=== PATIENT | male | born 1990 | race Caucasian/White ===

== ENCOUNTER 2016-10-02 10:09 | Emergency (ER) | payer SELFPAY ==
[~2016-10-02] VITALS: Ht 167.6 cm; Wt 75.0 kg
[2016-10-02 10:22] VITALS: Ht 167.6 cm; Wt 75.0 kg
[2016-10-02] MEDS ORDERED: ONDANSETRON 4 MG INJ IV STA (10:25)
[2016-10-02] MEDS ORDERED: SOD CHLORIDE 0.9% 1,000 ML IV STA ×2 (10:25→11:51)
--- NOTE | 2016-10-02 10:36 | ERD ---
ER Documentation Chief Complaint Date/Time DATE: 10/02/16 TIME: 10:29 Chief Complaint TACHYCARDIA, DIAPHORESIS, PALE WHILE AT WORK , STATES FLU SYMPTOMS X8 DAYS HPI This is a very pleasant 25-year-old male with no past medical history that presents to the emergency department complaining of flulike symptoms for the past 7 days. The patient indicates he has had generalized malaise, tactile fever, nonproductive cough 7 days prior to arrival but has not improved. He took Motrin and Tylenol at 5 AM, 5 hours prior to arrival. The patient indicates he was working out doing cardiovascular activity when he felt very lightheaded and dizzy and developed palpitations. He did not experience any syncope or near syncope episode denied any vertigo. He has no tinnitus. His coworker stated that he became diaphoretic. The patient denied a headache. He has not experienced any neck pain. He denies any recent travel. He denies any shortness of breath at rest or exertion. He denies any hemoptysis hematemesis or melanotic stools. ROS All systems reviewed and are negative except as per history of present illness. Medications Home Meds No Active Prescriptions or Reported Meds Allergies Allergies: Coded Allergies: No Known Drug Allergies (Verified Allergy, Unknown, 10/02/16) Physical Exam Vitals Vital Signs Date Time Temp Pulse Resp B/P Pulse Ox O2 Delivery O2 Flow Rate FiO2 10/02/16 10:22 99.0 118 18 114/76 95 Physical Exam Constitutional:Well-developed. Well-nourished. HEENT:Normocephalic. Atraumatic.Pupils were equal round reactive to light. Dry mucous membranes.No tonsillar exudates. Neck: No nuchal rigidity. No lymphadenopathy. No posterior cervical spine tenderness or step-offs. Respiratory: Not using accessory muscles of respiration.Lungs were clear to auscultation bilaterally. No rhonchi. No rales. No wheezing. Cardiovascular: Tachycardic with regular rhythm.No murmurs. No rubs were appreciated.S1, S2 normal. Distal pulses are palpable 2+ bilaterally. GI: Abdomen was soft. Nontender. Non Distended. No pulsatile abdominal masses or bruits. No rebound. No guarding. Bowel sounds were present and normal. Muscle skeletal: Full range of motion of both the upper and lower extremities bilaterally.Normal muscle tone.No assymetrical calf tenderness or swelling. Skin: No petechia, no purpura. No lesions on the palms or the soles of the feet. No maculopapular rash. NEURO: Patient was alert, awake, orientated x3.No facial droop. Gait observed and normal with no ataxia.Speech had regular rate and rhythm. No focal neurological deficits. Result Diagram: 10/02/16 1026 10/02/16 1255 Results 24 hrs Laboratory Tests Test 10/02/16 10:26 10/02/16 12:55 White Blood Count 16.810^3/ul Red Blood Count 4.8110^6/ul Hemoglobin 13.4g/dl Hematocrit 41.1% Mean Corpuscular Volume 85.4fl Mean Corpuscular Hemoglobin 27.9pg Mean Corpuscular Hemoglobin Concent 32.6g/dl Red Cell Distribution Width 12.9% Platelet Count 95079^3/UL Mean Platelet Volume 10.6fl Neutrophils % 82.7% Lymphocytes % 6.8% Monocytes % 3.5% Eosinophils % 0.1% Basophils % 0.4% Nucleated Red Blood Cells % 0.0/100WBC Neutrophils # 13.910^3/ul Lymphocytes # 1.110^3/ul Monocytes # 0.610^3/ul Eosinophils # 0.010^3/ul Basophils # 0.110^3/ul Nucleated Red Blood Cells # 0.010^3/ul Sodium Level 143mmol/L 139mmol/L Potassium Level 4.0mmol/L 4.6mmol/L Chloride Level 104mmol/L 106mmol/L Carbon Dioxide Level 21mmol/L 22mmol/L Anion Gap 22 16 Blood Urea Nitrogen 23mg/dl 22mg/dl Creatinine 2.05mg/dl 1.59mg/dl Glucose Level 105mg/dl 92mg/dl Calcium Level 10.6mg/dl 9.5mg/dl Total Bilirubin 0.1mg/dl Direct Bilirubin 0.00mg/dl Indirect Bilirubin 0.1mg/dl Aspartate Amino Transf (AST/SGOT) 42IU/L Alanine Aminotransferase (ALT/SGPT) 44IU/L Alkaline Phosphatase 115IU/L Total Protein 7.7g/dl Albumin 4.4g/dl Globulin 3.30g/dl Albumin/Globulin Ratio 1.33 Amylase Level 98U/L Lipase 100U/L Creatine Kinase 391IU/L Creatine Kinase Index 0.7 Creatinine Kinase MB (Mass) 2.70ng/ml Troponin I 0.054ng/ml Current Medications Medications (Trade) Dose Ordered Sig/Frank Route PRN Reason Start Time Stop Time Status Last Admin Dose Admin Sodium Chloride (NS) 1,000 ml @ 1,000 mls/hr Q1H STAT IV 10/02/16 10:25 10/02/16 11:24 DC 10/02/16 10:42 Ondansetron HCl 4 mg 4 mg ONCE STAT IV 10/02/16 10:25 10/02/16 10:27 DC 10/02/16 10:42 Sodium Chloride (NS) 1,000 ml @ 1,000 mls/hr Q1H STAT IV 10/02/16 11:51 10/02/16 12:50 DC 10/02/16 12:48 Famotidine (Pepcid Iv) 20 mg ONCE STAT IV 10/02/16 11:51 10/02/16 11:56 DC 10/02/16 12:48 Procedures/MDM This patient was seen and evaluated by myself. The patient presented to the emergency department complaining of dizziness and palpitations. My differential diagnosis included but was not limited to hypovolemia, myocardial infarction, pulmonary embolism, hypoglycemia, hypoxia, anemia, vasovagal episode, hypothyroidism, anxiety, peripheral or central vertigo. The patient was placed on a cardiac technologist, continuous pulse oximetry and IV access established by nursing staff. The patient appeared to have a upper respiratory infection and likely a viral etiology. Chest radiograph showed no evidence of pneumonia. The patient had clinical dehydration received IV fluids and Zofran. 12 Lead EKG tracing ordered and reviewed by myself showed: Sinus tachycardia of 111 bpm and no arrhythmia. [place] interval normal. QRS duration normal. No ST segment elevation No ST segment depression. No changes consistent with acute ischemia. The patient had leukocytosis with white blood cell count of 16.8. The patient was afebrile while in the emergency department. I did feel the patient's leukocytosis likely was a result of a viral etiology versus a bacterial etiology and there is no evidence of sepsis. The patient did have an elevated BUN and creatinine of 23 and 2.05. The patient has no history of renal failure and therefore did obtain an ultrasound of the kidneys which indicated no acute emergent pathology. I repeated the patient's blood work after he received IV fluid resuscitation and his BUN and creatinine had slightly improved from 22 to1.59 respectively Observation Note: Time: 4 hours Family Hx: No Hypertension Evaluation: Multiple exams showed improving symptoms and no evidence of severe rhabdomyolysis. The patient received a total of 3 L boluses of normal saline as his creatinine kinase was elevated at 391. The patient is currently in training for the fire department and states he has been undergoing a significant amount of cardiovascular activity despite having the upper respiratory infection. I explained to the patient the importance of avoiding extreme cardiovascular activity over the next several days as he does have mild rhabdomyolysis. The patient's [employer] was at the bedside and did indicate that they will be able to remove the patient from duty temporarily and follow-up with her Worker's Comp. physician on Sunday, October 05, 1947 hours from now. The patient had been given antiemetics in the emergency department and had no emesis while in the ER. He was able to tolerate oral intake. He will be sent home with a prescription of Zofran. The patient was discharged home in fair condition. They were instructed to return to the emergency department at any time if there was any worsening of their condition. The patient stated they would follow up with their PCP in the next 24-48 hours to initiate a suitable medication regimen under the care of their PCP as well as to allow their PCP to monitor any drug reactions. The patient was discharged home with prescriptions after they gave informed consent to the new medication. They were also fully informed by myself on the adverse effects and adverse drug interactions in order to provide adequate safeguards to prevent possible adverse reactions to medications. Departure Diagnosis: Primary Impression: Upper respiratory infection URI type: unspecified viral URI Qualified Code: J06.9 - Viral upper respiratory tract infection Additional Impressions: Palpitations Dizziness Rhabdomyolysis Rhabdomyolysis type: non-traumatic Qualified Code: M62.82 - Non-traumatic rhabdomyolysis Condition: Fair HENNAARNOLD WEBSTERA Oct 02, 2016 10:36
[2016-10-02 10:48] LABS: ADD SCAN DIFF NO
--- NOTE | 2016-10-02 10:50 | RADRPT ---
PROCEDURE: XR Chest. CLINICAL INDICATION: chest pain, abdominal pain TECHNIQUE: Single frontal view of the chest was obtained COMPARISON: None FINDINGS: The heart and mediastinum are within normal limits. The lungs are clear. There is no pleural effusion or pneumothorax. RPTAT: AA IMPRESSION: No acute disease. .Napoleon Gustafson MD, MD Date Time Electronically viewed and signed by .Napoleon Gustafson MD, on 10/02/2016 10:50 .S/
[2016-10-02 10:51] LABS: ABNORMAL IP MESSAGE 1; BASOPHIL # 0.1 10^3/ul (0.0-0.1); BASOPHILS % 0.4 % (0.0-2.0); EOSINOPHILS % 0.1 % (0.0-7.0); HEMATOCRIT 41.1 % (42.0-52.0); HEMOGLOBIN 13.4 g/dl (14.0-18.0); LYMPHOCYTES # 1.1 10^3/ul (0.8-2.9); LYMPHOCYTES % 6.8 % (15.0-51.0); MEAN CORPUSCULAR HEMOGLOBIN 27.9 pg (29.0-33.0); MEAN CORPUSCULAR HGB CONC 32.6 g/dl (32.0-37.0); MEAN CORPUSCULAR VOLUME 85.4 fl (82.0-101.0); MEAN PLATELET VOLUME 10.6 fl (7.4-10.4); MONOCYTE # 0.6 10^3/ul (0.3-0.9); MONOCYTES % 3.5 % (0.0-11.0); NEUTROPHIL # 13.9 10^3/ul (1.6-7.5); NEUTROPHILS % 82.7 % (39.0-77.0); PLATELET COUNT 274 10^3/UL (140-415); RED BLOOD COUNT 4.81 10^6/ul (4.70-6.10); RED CELL DISTRIBUTION WIDTH 12.9 % (11.5-14.5); WHITE BLOOD COUNT 16.8 10^3/ul (4.8-10.8)
[2016-10-02 11:01] LABS: ALBUMIN 4.4 g/dl (3.3-4.9)
[2016-10-02 11:04] LABS: CREATININE 2.05 mg/dl (0.61-1.24)
[2016-10-02 11:05] LABS: ALBUMIN/GLOBULIN RATIO 1.33; BILIRUBIN,INDIRECT 0.1 mg/dl (0-1.1); BILIRUBIN,TOTAL 0.1 mg/dl (0.2-1.3); CALCIUM 10.6 mg/dl (8.4-10.2); TOTAL PROTEIN 7.7 g/dl (6.1-8.1)
[2016-10-02] MEDS ORDERED: FAMOTIDINE 20 MG INJ IV STA (11:51)
--- NOTE | 2016-10-02 12:54 | RADRPT ---
PROCEDURE: Renal US. CLINICAL INDICATION: elevated BUN/Cr with no hx of renal failure TECHNIQUE: Multiple sonographic images of the kidneys were obtained. The images were reviewed on a PACS workstation. COMPARISON: No prior studies are available for comparison. FINDINGS: The kidneys are well visualized. The right kidney measures 9.9 cm. The left kidney measures 10.9 cm. There are no focal areas of abnormal echogenicity. There is no evidence for obstructive uropathy. T he urinary bladder is grossly unremarkable. IMPRESSION: Unremarkable renal ultrasound. Physician Lauro Date Time Electronically viewed and signed by Physician Lauro on 10/02/2016 12:54 ML/
[2016-10-02 13:22] LABS: POTASSIUM 4.6 mmol/L (3.5-5.1)
[2016-10-02 13:25] LABS: CREATININE 1.59 mg/dl (0.61-1.24)
[2016-10-02 13:26] LABS: CALCIUM 9.5 mg/dl (8.4-10.2)
[2016-10-02 13:38] LABS: TROPONIN-I 0.054 ng/ml (0.00-0.12)
[2016-10-02 13:39] LABS: CK-MB 2.7 ng/ml (0.0-2.4)
[2016-10-02 13:49] VITALS: BP 123/75; PULSE 89; RESP 18
[2016-10-02] MEDS ORDERED: ONDA4TAB14 PO (14:03)
[2016-10-02] MEDS ORDERED: METOCLOPRAMIDE 10 MG INJ IV ONE (14:30)
== END 2016-10-02 14:30 | disposition home or self-care (01) ==
LOC: E/R 10:09
DX: J06.9 Acute upper respiratory infection, unspecified (principal); R00.2 Palpitations; R42 Dizziness and giddiness; M62.82 Rhabdomyolysis
CPT/HCPCS: 71010; 76775; 80048; 80053; 82150; 82550; 82553; 83690; 84484; 85025; 87400; 93005; J2405; J2765; J7030; 96374; 96375